=== PATIENT | male | born 1990 | race Two or more races ===

== ENCOUNTER 2017-09-25 14:10 | Emergency (ER) | payer SELFPAY ==
[2017-09-25 14:16] VITALS: BP 110/70; PULSE 75; RESP 16; TEMP 98; O2SAT 100
[2017-09-25] MEDS ORDERED: LANTUS2P SQ (15:04)
--- NOTE | 2017-09-25 15:09 | PD ---
HPI . Medication refill request Chief Complaint: Diabetic Time Seen by Provider: 14:55 Travel History International Travel<30 days: No Contact w/Intl Traveler<30days: No Traveled to known affect area: No History of Present Illness HPI This patient presents requesting a refill for insulin. He has a long-standing history of diabetes. He was recently hospitalized at [facility]. He was discharged about 2 days ago. His prescriptions were inadvertently lost or never given. Nonetheless, he comes in requesting a refill for his Lantus. He has been able to purchase regular insulin at [facility]. He normally takes Lantus 15 units nightly and uses Humalog for sliding scale coverage. I have explained to the patient that the regular Humulin insulin that he brought at [facility] would have the exact same sliding scale instructions. PFSH Social History Tobacco Use: No Allergies-Medications Reported Meds & Prescriptions Reported Meds & Active Scripts Active Lantus Inj (Insulin Glargine) 1,000 Unit/10 Ml Vial 15 Units SQ HS Review of Systems Except as stated in HPI: all other systems reviewed are Neg Physical Exam Narrative GENERAL: Awake and alert and in no acute distress. SKIN: Warm and dry. HEAD: Normocephalic/atraumatic. EYES: Pupils are equal. Extraocular movements are intact. ENT: Mucous membranes are moist and his breath does not smell of ketones. CARDIOVASCULAR: Regular rate and rhythm. RESPIRATORY: Nonlabored respirations. MUSCULOSKELETAL: Atraumatic. NEUROLOGICAL: Nonfocal. PSYCHIATRIC: Appropriate mood and affect. Data Data Last Documented VS Vital Signs Date Time Temp Pulse Resp B/P (MAP) Pulse Ox O2 Delivery O2 Flow Rate FiO2 09/25/17 14:16 98.0 75 16 110/70 (83) 100 Orders Orders Ed Discharge Order (09/25/17 15:05) MDM Medical Decision Making Medical Screen Exam Complete: Yes Emergency Medical Condition: Yes Differential Diagnosis Differential diagnosis of hyperglycemia includes but is not limited to dietary indiscretion, medication noncompliance, infection, [place] Narrative Course This patient presents requesting a refill for his Lantus insulin. He has no evidence of DKA. I have refilled his prescription. Diagnosis Primary Impression: Diabetes Qualified Codes: E10.65 - Type 1 diabetes mellitus with hyperglycemia Patient Instructions: General Instructions Departure Forms: Tests/Procedures Scripts Insulin Glargine Inj (Lantus Inj) 1,000 Unit/10 Ml Vial 15 UNITS SQ HS for Blood Sugar Management, #1 VIAL 0 Refills Prov: Bonnie Gillis MD 09/25/17 Disposition: 01 DISCHARGE HOME Condition: Stable Bonnie Gillsi MD Sep 25, 2017 15:08
[2017-09-25 15:30] VITALS: BP 122/69; PULSE 67; RESP 18; O2SAT 100
== END 2017-09-25 15:43 | disposition home or self-care (01) ==
LOC: NEPC 14:10
DX: Z76.0 Encounter for issue of repeat prescription (principal); E10.65 Type 1 diabetes mellitus with hyperglycemia; Z79.4 Long term (current) use of insulin
CPT/HCPCS: 99281